=== PATIENT | male | born 1975 | race Caucasian/White ===

== ENCOUNTER 2020-09-15 08:58 | Outpatient (REF) | payer BC, SELFPAY ==
[2020-09-15 11:21] LABS: Glucose Urine UA NEG (NEG); Leukocyte Esterase Urine NEG (NEG); Nitrite Urine NEG (NEG); Specific Gravity - Urine 1.025 (1.005-1.025); Urine Blood NEG (NEG); Urine Ketones 40 MG/DL (NEG); Urine Protein NEG (NEG-TRACE)
[2020-09-15 11:28] LABS: Appearance Urine CLEAR; Color Urine YELLOW
[2020-09-15 11:37] LABS: Hematocrit 46.4 % (42-52); Hemoglobin 15.2 g/dl (14.0-18.0); Mean Corpuscular HGB Conc 32.8 g/dl (31.0-36.0); Mean Corpuscular Hemoglobin 27.9 pg (27.0-33.0); Mean Corpuscular Volume 85.1 fL (80-98); Mean Platelet Volume 11.3 fL (9.4-12.4); Platelet Count 219 X10*3/uL (160-400); Red Blood Count 5.45 X10*6/uL (4.60-5.80); Red Cell Distribution Width 13.9 % (11.0-16.0); White Blood Count 4.1 X10*3/uL (4.8-10.8)
[2020-09-15 11:41] LABS: Mucus Urine 2+ /LPF; RBC Urine 0 /HPF (0); Squamous Epithelial Cell Urine TRACE /LPF; WBC Urine 0 /HPF (0-4)
[2020-09-15 11:52] LABS: Alanine Aminotransferase 18 U/L (0-40); Albumin Level 4.6 g/dL (3.5-5.0); Alkaline Phosphatase 42 U/L (39-117); Anion Gap 15 (12-20); Aspartate Amino Transferase 18 U/L (5-37); Bilirubin Total 0.8 mg/dL (0.0-1.0); Blood Urea Nitrogen 20 mg/dL (9-16); Calcium 9.3 mg/dL (8.4-10.2); Carbon Dioxide 24 mmol/L (22-29); Chloride 104 mmol/L (96-108); Cholesterol 276 mg/dL; Estimated Glomerular Filt Rate > 60; Glucose Fasting 88 mg/dL (60-99); HDL Cholesterol 43 mg/dL; LDL Cholesterol Calculated 216 mg/dl; Potassium 4.3 mmol/L (3.3-5.1); Sodium 139 mmol/L (135-145); Total Protein 7.4 g/dL (6.5-8.0); Triglycerides 88 mg/dL
== END 2020-09-15 08:59 | disposition home or self-care (01) ==
LOC: HO.HMGCLDS 08:58
PROVIDERS: PCP Internal Medicine; Visit Provider Internal Medicine
DX: Z00.00 Encounter for general adult medical examination without abnormal findings (principal)
CPT/HCPCS: 36415; 80053; 80061; 81001; 85027

== ENCOUNTER 2023-05-15 07:58 | Outpatient (REF) | payer BC, SELFPAY ==
[2023-05-15 08:28] LABS: MANUAL DIFF FLAG NO
[2023-05-15 08:43] LABS: Basophils Percent Auto 0.4 % (0-2); Eosinophils Absolute Auto 0.3 X10*3/uL (0.0-0.4); Eosinophils Percent Auto 5.5 % (0-4); Hematocrit 45.8 % (42.0-52.0); Hemoglobin 15.2 g/dl (14.0-18.0); Imm Gran Abs Auto 0.01 X10*3/uL (0.00-0.03); Imm Gran Pct Auto 0.2 % (0.0-0.4); Lymphocytes Percent Auto 41.7 % (20-40); Mean Corpuscular HGB Conc 33.2 g/dl (31.0-36.0); Mean Corpuscular Hemoglobin 28.2 pg (27.0-33.0); Mean Platelet Volume 11.3 fL (9.4-12.4); Monocytes Absolute Auto 0.3 X10*3/uL (0.1-1.2); Monocytes Percent Auto 6.8 % (2-11); Neutrophils Absolute Auto 2.1 x10*3/uL (2.0-8.3); Neutrophils Percent Auto 45.4 % (45-73); Platelet Count 212 X10*3/uL (160-400); Red Blood Count 5.39 X10*6/uL (4.60-5.80); Red Cell Distribution Width 13.3 % (11.0-16.0); White Blood Count 4.7 X10*3/uL (4.8-10.8)
[2023-05-15 08:58] LABS: Appearance Urine Clear; Color Urine Yellow; Glucose Urine UA Negative (Negative); Leukocyte Esterase Urine Negative (Negative); Nitrite Urine Negative (Negative); PH 5.5 (5.0-9.0); Specific Gravity - Urine 1.025 (1.005-1.025); Urine Blood Negative (Negative); Urine Ketones Trace mg/dL (Negative); Urine Protein Negative (Neg-Trace)
[2023-05-15 09:01] LABS: Bacteria Urine None Seen (None Seen); Hyaline Casts Urine 0-2 /LPF (0-2); RBC Urine 0-2 /HPF (0-2); Squamous Epithelial Cell Urine 0-2 /HPF (0-2); WBC Urine 0-5 /HPF (0-5)
[2023-05-15 09:10] LABS: Alanine Aminotransferase 61 U/L (0-40); Albumin Level 4.3 g/dL (3.5-5.0); Alkaline Phosphatase 42 U/L (39-117); Anion Gap 12 (12-20); Aspartate Amino Transferase 30 U/L (5-37); Bilirubin Total 0.3 mg/dL (0.0-1.0); Blood Urea Nitrogen 18 mg/dL (9-16); Calcium 9.3 mg/dL (8.4-10.2); Carbon Dioxide 26 mmol/L (22-29); Chloride 108 mmol/L (96-108); Cholesterol 214 mg/dL (<200); Estimated Glomerular Filt Rate > 60; Glucose Fasting 104 mg/dL (60-99); HDL Cholesterol 42 mg/dL (>40); LDL Cholesterol Calculated 159 mg/dL (<100); Potassium 3.7 mmol/L (3.3-5.1); Sodium 142 mmol/L (135-145); Total Protein 7.2 g/dL (6.5-8.0); Triglycerides 68 mg/dL (<150); Uric Acid 5.8 mg/dL (3.4-7.0)
[2023-05-15 09:26] LABS: Vitamin D 25-OH Total 36.2 ng/mL (>30)
[2023-05-15 09:39] LABS: Folate 5.4 ng/mL (> or = 4.0); Vitamin B12 460 pg/mL (200-900)
[2023-05-16 17:49] LABS: Homocysteine 11.1 umol/L (<11.4)
== END 2023-05-15 07:59 | disposition home or self-care (01) ==
LOC: HO.HMGCLDS 07:58
PROVIDERS: PCP Internal Medicine; Visit Provider Internal Medicine
DX: Z00.00 Encounter for general adult medical examination without abnormal findings (principal)
CPT/HCPCS: 36415; 80053; 80061; 81001; 82306; 82607; 82746; 83090; 84550; 85025

== ENCOUNTER 2023-05-17 08:47 | Outpatient (AMB) | payer BC, SELFPAY ==
[2023-05-17 08:48] VITALS: BP 118/80; PULSE 79; O2SAT 97; BMI 27.9
--- NOTE | 2023-05-17 08:48 | MHC.PC.OV ---
Vital Signs 05/17/23 08:48 Height 6 ft 4 in Weight 229 lb BMI 27.9 BP 118/80 Blood Pressure Location Lt brachial Position Sitting Pulse 79 Pulse Source Pulse Oximeter Pulse Oximetry (%) 97 Oxygen Delivery Method Room Air Intake Visit Reasons: PE Intake Note: Pt is here today for PE. Allergies penicillin G Allergy (Unknown, Verified 05/17/23 08:53) unknown Medication List - Last Reconciled 05/17/23 by Janice Zamora MD cholecalciferol (vitamin D3) 125 mcg PO DAILY omega-3 fatty acids PO vitamin B complex 1 cap PO DAILY Tobacco use date assessed: 05/17/23 Dental Screening Dental Screen Date: 05/17/23 Did you have a dental visit in the last 12 months?: Yes Did you have a dental problem in the last 6 months where you did not have access to dental care?: No Was dental information given to patient?: Patient has dentist HPI PE HPI Details Pt presents for PE. PFSH Medical History Hyperlipidemia Annual physical exam Family History Father No problems noted. Mother Diabetes Paternal Grandfather Lung cancer Social History Housing: House Alcohol intake: current Alcohol intake frequency: a few times a month Patient Tobacco Use Status: Current someday Tobacco user Tobacco use type: Cigarette e-Cigarette/Vaping Use: Never Used Current occupational status: employed Cognitive needs: No Hearing needs: No Vision needs: Yes Questionnaire Thrive Questionnaire I am a: Patient What is your living situation today?: I have a steady place to live Within the past 12 months, did the food you bought not last and you didn't have the money to get more?: Never true Within the past 12 months, did you worry whether your food would run out before you got money to buy more?: Never true Please select the resources that you would like help with: None AUDIT C Alcohol Use Questionnaire (AUDIT-C) 1. How often do you have a drink containing alcohol?: 2-4 times a month 2. How many drinks containing alcohol do you have on a typical day when you are drinking?: 1 or 2 3. How often do you have six or more drinks on one occasion?: Less than monthly Total Score: 3 MARIE-7 AMB Questionnaire MARIE-7 Feeling nervous, anxious, or on edge: 2 = More than half the days Not being able to stop or control worryin = Not at all Worrying too much about different things: 1 = Several days Trouble relaxin = Several days Being so restless that it is hard to sit still: 0 = Not at all Becoming easily annoyed or irritable: 1 = Several days Feeling afraid as if something awful might happen: 1 = Several days Total MARIE-7 score (0-4 normal; 5-9 mild; 10-14 moderate; 15-21 severe): 6 Source: Developed by Drs. Heraclio Landa, Shelby Ngo, Duc Nixon and colleagues, with an educational ana from [employer]. Review of Systems Const All systems reviewed & are unremarkable except as noted in HPI and below Reports no additional complaints Eyes Reports no additional complaints ENT Reports no additional complaints Card Reports no additional complaints Resp Reports no additional complaints GI Reports no additional complaints Reports no additional complaints Physical exam (Primary Care) Vital Signs: Last Vital Signs Pulse 79 05/17/23 08:48 BP 118/80 05/17/23 08:48 Pulse Ox 97 05/17/23 08:48 Oxygen Delivery Method Room Air 05/17/23 08:48 BMI result Body Mass Index 27.9 Tobacco/Smoking Status: Tobacco use Status Tobacco use date assessed 05/17/23 05/17/23 08:58 Patient Tobacco Use Status Current someday Tobacco 05/17/23 08:58 Tobacco use type Cigarette 05/17/23 08:58 e-Cigarette/Vaping Use Never Used 05/17/23 08:58 Const General: no acute distress HENMT Head: Yes normal to inspection Ears: hearing grossly normal bilaterally Face and sinus: Yes normal facial exam Mouth: Normal oral and palatal mucosa present Teeth and gingiva: dentition normal Throat: Yes posterior oropharynx normal Eyes General: appearance normal, both eyes and all related structures Neck Neck: Yes no lymphadenopathy and Yes supple Resp Effort & Inspection: normal respiratory effort Auscultation: clear to auscultation bilaterally Cardio Rhythm: regular rhythm Heart sounds: S1 normal heart sound present and S2 normal heart sound present GI Inspection: Yes normal to inspection Palpation (GI): Soft to palpation Percussion: Yes normal to percussion Auscultation: normal bowel sounds Assessment and Plan Assessment & Plan (1) Elevated LFTs: Code(s): R79.89 - Other specified abnormal findings of blood chemistry Plan: Low saturated fats and simple carbohydrates diet discussed with the patient. He was advised to avoid alcohol and [id number] NSAIDs and will have a repeat LFTs in 1 month. Liver ultrasound will be obtained (2) Annual physical exam: Code(s): Z00.00 - Encounter for general adult medical examination without abnormal findings Plan: Well-balanced diet regular physical activity discussed with the patient. He will be referred for screening colonoscopy (3) Hyperlipidemia: Code(s): E78.5 - Hyperlipidemia, unspecified Plan: Low-cholesterol diet increase physical activity discussed with the patient . lipid profile will be rechecked. Orders: Orders US abdomen limited Today R7 - Other specified abnormal findings of blood chemistry Hepatitis A,B,C Profile 1 Month R7. - Other specified abnormal findings of blood chemistry Comprehensive [place]. Panel Fast 365 Days E78.5 - Hyperlipidemia, unspecified, R73.9 - Hyperglycemia, unspecified, Z00.00 - Encounter for general adult medical examination without abnormal findings Lipid Panel 365 Days E78.5 - Hyperlipidemia, unspecified, R73.9 - Hyperglycemia, unspecified, Z00.00 - Encounter for general adult medical examination without abnormal findings Liver Panel 1 Month R79.89 - Other specified abnormal findings of blood chemistry Lipid Panel 1 Month E78.5 - Hyperlipidemia, unspecified Complete Blood Count Auto Diff 365 Days E78.5 - Hyperlipidemia, unspecified, R73.9 - Hyperglycemia, unspecified, Z00.00 - Encounter for general adult medical examination without abnormal findings Hemoglobin A1c 365 Days R73.9 - Hyperglycemia, unspecified, Z00.00 - Encounter for general adult medical examination without abnormal findings Referrals Gastroenterology Referral Z00.00 - Encounter for general adult medical examination without abnormal findings Medications: New ketoconazole 2% 1 appl topical DAILY 120 grams 1RF Coding Level of Care Code Est Pt Prev Care 40-64y(59707) Diagnoses Elevated LFTs R7. Annual physical exam Z00.00 Hyperlipidemia E78.5
== END 2023-05-17 09:42 | disposition home or self-care (01) ==
PROVIDERS: PCP Internal Medicine; Visit Provider Internal Medicine
DX: R79.89 Other specified abnormal findings of blood chemistry (principal); Z00.00 Encounter for general adult medical examination without abnormal findings; E78.5 Hyperlipidemia, unspecified
CPT/HCPCS: 99396

== ENCOUNTER 2023-05-30 08:36 | Outpatient (REF) | payer BC, SELFPAY ==
--- NOTE | ~2023-05-30 | US_ITS ---
EXAMINATION: US ABDOMEN LIMITED CLINICAL INFORMATION: Other specified abnormal findings of blood chemistry. COMPARISON: None available. TECHNIQUE: Real-time imaging of the right upper quadrant abdominal viscera. FINDINGS: PANCREAS: Normal. The visualized pancreatic head and body are normal in appearance. The remainder of the pancreas is obscured from visualization by the overlying bowel gas. LIVER: Normal. The liver is normal in size. The liver contour is normal. Parenchymal echogenicity is normal. No focal hepatic lesion. There is no intrahepatic biliary duct dilatation seen. GALLBLADDER: Normal. The gallbladder is physiologically distended without evidence of stones, sludge, polyps, wall thickening or pericholecystic fluid. COMMON BILE DUCT: Normal in caliber measuring 0.15 cm in diameter. RIGHT KIDNEY: Normal. No hydronephrosis. No renal calculi or focal parenchymal lesions. The kidney measures 11.2 cm in maximum dimension. FREE FLUID: None. US/US abdomen limited IMPRESSION: Unremarkable examination, with imaging of the pancreas technically limited.
== END 2023-05-30 08:37 | disposition home or self-care (01) ==
LOC: HO.HMGCX 08:36
PROVIDERS: PCP Internal Medicine; Visit Provider Internal Medicine
DX: R79.89 Other specified abnormal findings of blood chemistry (principal)
CPT/HCPCS: 76705

== ENCOUNTER 2023-07-03 08:38 | Outpatient (AMB) | payer BC, SELFPAY ==
[2023-07-03 08:43] VITALS: BP 133/64; PULSE 77; BMI 27.4
--- NOTE | 2023-07-03 08:43 | MHC.OFFVIS ---
Intake Vital Signs 07/03/23 08:43 Height 6 ft 4 in Weight 225 lb BMI 27.4 BP 133/64 Blood Pressure Location Lt brachial Position Sitting Pulse 77 Pulse Source Monitor Intake Visit Reasons: Colonoscopy Screening Intake Note: Patient states no GI issues at the moment. 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 male with no significant past medical history is here today for pre colonoscopy screening.? Patient was sent to us by his PCP.? This is his first colonoscopy screening.? Patient reports occasional postprandial abdominal bloating, feeling gassy. Patient is doing intermittent fasting with 8 hours of eating in 16 hours of fasting. Reports that he moves his bowels without any issues. Patient reports that lately depending on what he eats he might be feeling very bloated.? Denies any personal or family history of gastrointestinal disease. Patient's maternal aunt was diagnosed with colorectal cancer in her 80s.? Denies history of difficulty with sedation or anesthesia in the past.? Negative for history of sleep apnea.? Denies any history of cardiac, renal, pulmonary, or hepatic disease.?? No history of infectious? diseases like hepatitis A, B, C, HIV or tuberculosis.? Patient is not on any anticoagulation therapy. [facility] Medical History Hyperlipidemia Annual physical exam Family History Father No problems noted. Mother Diabetes Paternal Grandfather Lung cancer Social History Housing: House Alcohol intake: current Alcohol intake frequency: a few times a month Patient Tobacco Use Status: Current someday Tobacco user Tobacco use type: Cigarette e-Cigarette/Vaping Use: Never Used Current occupational status: employed Cognitive needs: No Hearing needs: No Vision needs: Yes Review of Systems Const Denies weight gain and Denies weight loss ENT Reports no additional complaints, Denies dysphagia and Denies odynophagia Card Reports no additional complaints Resp Reports no additional complaints GI Denies abdominal pain, Denies belching, Denies melena, Reports bloating, Denies change in bowel habits, Reports tenesmus, Denies dysphagia, Denies excessive flatus, Denies dyspepsia, Reports heartburn, Denies diarrhea, Denies loose stools, Denies nausea, Denies odynophagia and Denies vomiting Reports no additional complaints Musc Reports no additional complaints Neuro Reports no additional complaints Psych Reports no additional complaints Endo Reports no additional complaints Physical Exam Const General: healthy appearing, no acute distress and well developed Nutritional Appearance: well nourished Orientation/consciousness: patient oriented x3 Resp Effort & Inspection: normal respiratory effort, able to speak in complete sentences, no tracheal deviation and symmetric chest movement Auscultation: clear to auscultation bilaterally Cardio Rate: regular rate GI Inspection: Yes normal to inspection and No distended Palpation (GI): Soft to palpation, not firm, nontender and No hepatosplenomegaly present Auscultation: normal bowel sounds General: Yes no CVA tenderness Back/Spine/Pelvis Back: no CVA tenderness Skin General skin exam: elasticity normal, turgor normal and dry skin Neuro General: patient oriented x3 Psych Appearance: grossly normal Mental Status: mental status grossly normal Assessment & Plan Assessment & Plan (1) Screen for colon cancer: Code(s): Z12.11 - Encounter for screening for malignant neoplasm of colon (2) GERD (gastroesophageal reflux disease): Code(s): K21.9 - Gastro-esophageal reflux disease without esophagitis Qualifiers: Esophagitis presence: esophagitis presence not specified Qualified Code(s): K21.9 - Gastro-esophageal reflux disease without esophagitis (3) Postprandial abdominal bloating: Code(s): R14.0 - Abdominal distension (gaseous) Plan Patient denies any cardiac or respiratory symptoms.? Patient reports postprandial abdominal bloating, feeling very gassy. Discussed with patient low FODMAP diet. List of food recommended as well as list of food to avoid given to patient. Postprandial dyspepsia occasionally. Patient does admit to be drinking lot of coffee a day. Patient will be sent for upper endoscopy to rule out gastritis, esophagitis, Lehman's, duodenitis, gastric or peptic ulcers, H pylori. Currently patient is not taking any PPIs, we will hold on placing patient on any medication until after procedure. Denies any issues with anesthesia in the past.? Denies any history of sleep apnea.? No history infectious diseases in the past or present.? Not on any anticoagulation therapy.? Maternal aunt diagnosed with colorectal cancer in her 80s.? Patient denies melena, hematochezia, unintentional weight loss or ribbon like stools.? Discussed at length the pre-procedure,? prep, diet & medications as well as what to expect prior, during and after the procedure.?? Stressed the importance of good bowel prep. ?Recommended the use of Vaseline or Calmoseptine OTC & baby wipes with bowel movements to promote comfort.? ?Patient verbalizes understanding and agrees to plan of care.? He was given the opportunity to ask questions and all questions answered.? We will see his after the procedure.? Medications: New bisacodyl (Dulcolax (bisacodyl)) take 4 tabs at noon the day before your colonoscopy 20 mg (4 x 5 mg) PO ONCE 1 day 4 tabs 0RF Z12.11 - Encounter for screening for malignant neoplasm of colon polyethylene glycol 3350 (Miralax) As directed by [facility] at [facility] 238 grams PO ONCE 238 grams 0RF Z12.11 - Encounter for screening for malignant neoplasm of colon Coding Level of Care Code New Pt Level 4 (35148) Diagnoses Screen for colon cancer Z12.11 Gastroesophageal reflux disease, unspecified whether esophagitis present K21.9 Esophagitis presence: esophagitis presence not specified Postprandial abdominal bloating R14.0 Time Spent (min) 45 Comment 30 minutes spent with patient and additional 15 minutes spent reviewing her records
== END 2023-07-03 09:33 | disposition home or self-care (01) ==
PROVIDERS: PCP Internal Medicine; Visit Provider Nurse Practitioner Family
DX: K21.9 Gastro-esophageal reflux disease without esophagitis (principal); R14.0 Abdominal distension (gaseous); Z12.11 Encounter for screening for malignant neoplasm of colon
CPT/HCPCS: 99204

== ENCOUNTER → 2023-07-03 08:38 | Outpatient (BNVA) | payer BC, SELFPAY | PROVIDERS: PCP Internal Medicine; Visit Provider Nurse Practitioner Family ==

== ENCOUNTER 2023-10-09 07:28 | Day surgery (SDC) | payer BC, SELFPAY ==
--- NOTE | 2023-10-04 11:55 | HO.ANESPROP2 ---
Documented by User: Sydnee Varma NP 10/04/23 12:08 HPI - Anesthesia Eval Consult details Narrative: 48yo M for Upper Endoscopy and Colonoscopy [facility] Active Problems Active Problems: All Active Problems Hyperglycemia (Acute) Hyperlipidemia (Acute) Elevated LFTs (Acute) Annual physical exam (Acute) Past Medical History Medical History (Updated 10/09/23 @ 09:27 by Mireya Nix RN) History of deviated nasal septum Hyperlipidemia Annual physical exam Family History Family History Father No problems noted. Mother Diabetes Paternal Grandfather Lung cancer Surgical History Surgical History (Updated 10/09/23 @ 09:27 by Mireya Nix RN) Hx of wisdom tooth extraction Social History Social History Housing: House Alcohol intake: current Alcohol intake frequency: a few times a month Patient Tobacco Use Status: Current someday Tobacco user Tobacco use type: Cigarette Smoked in Last 30 Days: Yes e-Cigarette/Vaping Use: Never Used Patient Interested in Nicotine Replacement: No Are you DNR?: No Advance Directives: No Advance Directives Information Provided: Yes Nutrition Risks: No Nutritional Risk Current occupational status: employed Cognitive needs: No Hearing needs: No Vision needs: Yes Meds Allergies Allergy/AdvReac Type Severity Reaction Status Date / Time penicillin G Allergy Unknown unknown Verified 10/09/23 08:03 Home Medications ?Medication ?Instructions ?Recorded ?Confirmed ?Last Taken ?Type cholecalciferol (vitamin D3) 125 125 mcg PO DAILY 05/17/23 10/09/23 Unknown History mcg (5,000 unit) capsule omega-3 fatty acids PO 05/17/23 05/17/23 Unknown History vitamin B complex 1 cap PO DAILY 05/17/23 10/09/23 Unknown History Assessment and Plan Assessment Anesthesia Assessment: Chart Reviewed Documented by User: Eber Bhatt MD 10/09/23 09:49 [facility] Past Medical History Medical History (Updated 10/09/23 @ 09:27 by Mireya Nix RN) History of deviated nasal septum Hyperlipidemia Annual physical exam Family History Family History Father No problems noted. Mother Diabetes Paternal Grandfather Lung cancer Family history of problems with anesthesia: No Surgical History Surgical History (Updated 10/09/23 @ 09:27 by Mireya Nix RN) Hx of wisdom tooth extraction History of Problems with Anesthesia: No Social History Social History Housing: House Alcohol intake: current Alcohol intake frequency: a few times a month Patient Tobacco Use Status: Current someday Tobacco user Tobacco use type: Cigarette Smoked in Last 30 Days: Yes e-Cigarette/Vaping Use: Never Used Patient Interested in Nicotine Replacement: No Are you DNR?: No Advance Directives: No Advance Directives Information Provided: Yes Nutrition Risks: No Nutritional Risk Current occupational status: employed Cognitive needs: No Hearing needs: No Vision needs: Yes Meds Allergies Allergy/AdvReac Type Severity Reaction Status Date / Time penicillin G Allergy Unknown unknown Verified 10/09/23 08:03 Home Medications ?Medication ?Instructions ?Recorded ?Confirmed ?Last Taken ?Type cholecalciferol (vitamin D3) 125 125 mcg PO DAILY 05/17/23 10/09/23 Unknown History mcg (5,000 unit) capsule omega-3 fatty acids PO 05/17/23 05/17/23 Unknown History vitamin B complex 1 cap PO DAILY 05/17/23 10/09/23 Unknown History Exam Airway Mallampati Class: I TM Dist: >3cm Neck ROM: Full Loose/Missing/Broken Teeth: No Heart: rrr Lungs: cta Assessment and Plan Assessment Anesthesia Assessment: Anesthesia Plan Discussed Final Anesthetic Review Family History of Problems with Anesthesia: No History of Problems with Anesthesia: No NPO: Yes ASA Class: II Final Preanesthetic Review: No Changes in Pt Med Stat, Meds/Allgs Chart Reviewed, Consent Obtained/Reviewed and Anes Risks/Benef Reviewed Patient Risk: Intermediate Procedure Risk: Intermediate Anesthetic Plan Anesthetic Plan: MAC: Disposition: Standard PACU
[2023-10-09 07:57] VITALS: BMI 27.4
[2023-10-09] MEDS: Sodium Phosphate,Mono-Dibasic 133 ML ENEMA PR ×2 (09:24→09:34)
[2023-10-09] MEDS: Lactated Ringers 1,000 ML 100 ML IVCONT (09:24)
[2023-10-09 09:26] VITALS: BP 134/74; PULSE 87; RESP 18; TEMP 36.8; O2SAT 100
--- NOTE | 2023-10-09 10:00 | MHC.SHP ---
Pre-Procedural Eval Section A - 24 Hr Update-Section A only Date of Service: 10/09/23 Section B - Complete if H&P > 30 days Chief Complaint: Encounter for screening for malignant neoplasm of Relevant Family History (Specify if Yes): No Relevant Social History: None Present Medications: see Short Stay Collaborative assessment Medical History: Significant History (Hyperlipidemia) History of Previous Operations: No relevant previous surgery Allergies: Allergies Allergy/AdvReac Type Severity Reaction Status Date / Time penicillin G Allergy Unknown unknown Verified 10/09/23 08:03 Review of Systems Sugical H&P ROS: Negative: Constitution, Cardiovascular, Respiratory, Neurological, Psychiatric, Hem-Onc, Allergic/Immunologic, Gastrointestinal, Genitourinary, Musculoskeletal, Integumentary, Endocrine and Eyes/Ears/Nose/Throat Exam Surgical H&P Exam: Normal: HEENT, Normal: Heart, Normal: Lungs, Normal: Extremities, Normal: Abdomen, Normal: Skin and Normal: Neurological Plan Diagnosis/Plan: Unchanged I have reviewed the history and physical and performed a pertinent physical examination on my patient. No changes have occurred unless specified. Time Spent With Patient Time: Total time managing care of this patient today ____ minutes.
--- NOTE | 2023-10-09 10:02 | P.OPN-COLO_ITS ---
Colonoscopy Operative Note Operative Note Date of Service: 10/09/23 Narrative: Operative Information Procedure Description: EGD, Colonoscopy Indication: Halitosis and screening colon Anesthesia: MAC FLEXIBLE TRANSORAL UPPER GASTROINTESTINAL ENDOSCOPY AND COLONOSCOPY PROCEDURE NOTE UPPER ENDOSCOPY Consent: Indications for the procedure and potential complications of bleeding, perforation, reaction to medications and missed diagnosis were discussed with the patient and informed consent was obtained. Instrument: Olympus GIF H 190 J mid size upper endoscope Monitoring: Vital signs and clinical assessment, continuous EKG monitoring, Pulse oximetry, Carbon Dioxide monitoring and blood pressure monitoring were done throughout the procedure. Procedure: The patient was placed in the left lateral decubitis position and pre-procedure medications were administered and a bite block was placed. The endoscope was inserted into the mouth and advanced under direct vision to the third part of duodenum. A careful inspection was made as the upper endoscope was withdrawn including a retroflexed examination of the proximal stomach; Findings and interventions are described below. Findings: Larynx:normal Esophagus: GE junction at 44 cm, diaphragm hiatus at 44 cm, slightly dissicated appearing mucosa, bx taken from distal and proximal esophagus Stomach: Normal mucosa. Biopsies were obtained. Grade 2 flap valve on retroflexed examination of the cardia. Duodenum: Normal bulb and descending duodenum, bx taken Intervention: Biopsies as noted above, COLONOSCOPY Instrument: Olympus variable stiffness pediatric scope 190L Colonoscopy Monitoring: Vital signs and clinical assessment, continuous EKG monitoring, Pulse oximetry, Carbon Dioxide monitoring and blood pressure monitoring were done throughout the procedure. Colon withdrawal time was 13 minutes. Procedure: The patient was placed in the left lateral decubitis position and pre-procedure medications were administered. After a digital rectal examination of the ano-rectum, the video colonoscope was inserted into the rectum and advanced through the colon to the cecum/TI. The colonoscope was slowly withdrawn in a retrograde panoramic fashion and the colon mucosa was carefully examined including a retroflexed view of the rectum. Findings and interventions are described below. Procedure Difficulty:moderate Findings: Terminal Ileum-normal Cecum:normal Ascending Colon: normal Transverse Colon -normal Descending Colon:normal Sigmoid Colon: normal Rectum: Retroflexion with small internal hemorrhoids, grade I Anorectum - normal Colon preparation: [place] Bowel Preparation Scale Right colon; 2 Transverse colon: 2 Left colon; 2 (0 = Unprepared colon segment with mucosa not seen due to solid stool that cannot be cleared. 1 = Portion of mucosa of the colon segment seen, but other areas of the colon segment not well seen due to staining, residual stool and/or opaque liquid. 2 = Minor amount of residual staining, small fragments of stool and/or opaque liquid, but mucosa of colon segment seen well. 3 = Entire mucosa of colon segment seen well with no residual staining, small fragments of stool or opaque liquid) Impression and Post Procedure Diagnosis: Endoscopy Findings: mild esophagitis Colonoscopy Findings: internal hemorrhoids Plan: Await Pathology results Repeat Colonoscopy in 10 years or earlier if clinically indicated High fiber diet leaflet avoid straining at stool, epsom salts and sitz bath, anusol supps or cream trial of PPI Above findings were reviewed with the patient and relevant handouts were provided if indicated.
[2023-10-09 10:53] VITALS: BP 98/59; PULSE 71; RESP 16; TEMP 36.1; O2SAT 97
[2023-10-09 11:08] VITALS: BP 109/76; PULSE 67; RESP 16; TEMP 36.1; O2SAT 98
== END 2023-10-09 11:48 | disposition home or self-care (01) ==
PROVIDERS: PCP Internal Medicine; Visit Provider Internal Medicine Gastroenterology
PROC: (CPT 45378; principal; 2023-10-09 09:50)
DX: Z12.11 Encounter for screening for malignant neoplasm of colon (principal); K64.0 First degree hemorrhoids; K21.00 Gastro-esophageal reflux disease with esophagitis, without bleeding; K29.80 Duodenitis without bleeding; R19.6 Halitosis
CPT/HCPCS: 45378; 43239; 88305; 88313; 88342; J1596; J1885; J2704

== ENCOUNTER → 2023-10-09 07:28 | Outpatient (BNV) | payer BC, SELFPAY | PROVIDERS: PCP Internal Medicine; Visit Provider Internal Medicine Gastroenterology | DX: Z12.11 Encounter for screening for malignant neoplasm of colon (principal); K64.0 First degree hemorrhoids; K20.90 Esophagitis, unspecified without bleeding; R19.6 Halitosis | CPT/HCPCS: 43239; 45378 ==

== ENCOUNTER 2023-11-06 08:25 | Outpatient (AMB) | payer BC, SELFPAY ==
--- NOTE | 2023-11-06 08:34 | A.OFFVIS_ITS ---
Vital Signs 11/06/23 08:39 Height 6 ft 4 in Weight 216 lb 0.848 oz BMI 26.3 BP 110/74 Blood Pressure Location Rt brachial Position Sitting Pulse 60 Pulse Source Pulse Oximeter Pulse Oximetry (%) 100 Oxygen Delivery Method Room Air Intake Visit Reasons: [place] s.p FUV Intake Note: Sanjay presents in office today for a scheduled post colo FUV. CC; Sanjay had his procedure on 10/09/[address] Liang. Pt denies any significant new concerns or sx. Pt denies any post s/p complications. [employer] Insurance Required: No Allergies Sulfa (Sulfonamide Antibiotics) Allergy (Unknown, Verified 11/06/23 08:39) Unknown HPI HPI [place] [facility] FUV: Details: LAST VISIT Screen for colon cancer GERD (gastroesophageal reflux disease) Postprandial abdominal bloating Plan Patient denies any cardiac or respiratory symptoms.? Patient reports postprandial abdominal bloating, feeling very gassy. Discussed with patient low FODMAP diet. List of food recommended as well as list of food to avoid given to patient. Postprandial dyspepsia occasionally. Patient does admit to be drinking lot of coffee a day. Patient will be sent for upper endoscopy to rule out gastritis, esophagitis, Lehman's, duodenitis, gastric or peptic ulcers, H pylori. Currently patient is not taking any PPIs, we will hold on placing patient on any medication until after procedure. Denies any issues with anesthesia in the past.? Denies any history of sleep apnea.? No history infectious diseases in the past or present.? Not on any anticoagulation therapy.? Maternal aunt diagnosed with colorectal cancer in her 80s.? Patient denies melena, hematochezia, unintentional weight loss or ribbon like stools.? Discussed at length the pre-procedure,? prep, diet & medications as well as what to expect prior, during and after the procedure.?? Stressed the importance of good bowel prep. ?Recommended the use of Vaseline or Calmoseptine OTC & baby wipes with bowel movements to promote comfort.? ?Patient verbalizes understanding and agrees to plan of care.? He was given the opportunity to ask questions and all questions answered.? We will see his after the procedure.? Medications New bisacodyl (Dulcolax (bisacodyl)) take 4 tabs at noon the day before your colonoscopy 20 mg (4 x 5 mg) PO ONCE 1 day 4 tabs 0RF Z12.11 polyethylene glycol 3350 (Miralax) As directed by gastroenterology department at [facility] 238 grams PO ONCE 238 grams 0RF Z12.11 UPPER ENDOSCOPY Findings: Larynx:normal Esophagus: GE junction at 44 cm, diaphragm hiatus at 44 cm, slightly dissicated appearing mucosa, bx taken from distal and proximal esophagus Stomach: Normal mucosa. Biopsies were obtained. Grade 2 flap valve on retroflexed examination of the cardia. Duodenum: Normal bulb and descending duodenum, bx taken Intervention: Biopsies as noted above, COLONOSCOPY Findings: Terminal Ileum-normal Cecum:normal Ascending Colon: normal Transverse Colon -normal Descending Colon:normal Sigmoid Colon: normal Rectum: Retroflexion with small internal hemorrhoids, grade I Anorectum - normal Colon preparation: Turrell Bowel Preparation Scale Right colon; 2 Transverse colon: 2 Left colon; 2 (0 = Unprepared colon segment with mucosa not seen due to solid stool that cannot be cleared. 1 = Portion of mucosa of the colon segment seen, but other areas of the colon segment not well seen due to staining, residual stool and/or opaque liquid. 2 = Minor amount of residual staining, small fragments of stool and/or opaque liquid, but mucosa of colon segment seen well. 3 = Entire mucosa of colon segment seen well with no residual staining, small fragments of stool or opaque liquid) Impression and Post Procedure Diagnosis: Endoscopy Findings: mild esophagitis Colonoscopy Findings: internal hemorrhoids Plan: Await Pathology results Repeat Colonoscopy in 10 years or earlier if clinically indicated High fiber diet leaflet avoid straining at stool, epsom salts and sitz bath, anusol supps or cream trial of PPI PATHOLOGY: Diagnosis A. Duodenum, biopsy: Chronic inactive duodenitis. B. Stomach, biopsy: Antral-type mucosa with moderate chronic inactive inflammation; no Helicobacter organisms seen. C. Esophagus, distal, biopsy: Squamous epithelium within normal limits; no inflammation seen. D. Esophagus, proximal, biopsy: Squamous epithelium within normal limits; no inflammation seen TODAY'S VISIT: Patient is here today for follow-up and to discuss upper endoscopy and colonoscopy results. Patient denies any ill effects from the prep, anesthesia or procedure itself. Patient reports that he has been feeling fairly well. Reports that he is moving his bowels well without any issues. Patient continues to have epigastric pain occasional dyspepsia and acid reflux depending on what he eats. Currently patient is not on any PPI or H2 roland. Patient denies any other GI concerning symptoms [facility] Medical History History of deviated nasal septum Hyperlipidemia Annual physical exam Surgical History H/O colonoscopy Hx of wisdom tooth extraction Family History Father No problems noted. Mother Diabetes Paternal Grandfather Lung cancer Social History Housing: House Alcohol intake: current Alcohol intake frequency: a few times a month Patient Tobacco Use Status: Current someday Tobacco user Tobacco use type: Cigarette e-Cigarette/Vaping Use: Never Used Current occupational status: employed Cognitive needs: No Hearing needs: No Vision needs: Yes Review of Systems Const Denies weight gain and Denies weight loss ENT Reports no additional complaints, Denies dysphagia and Denies odynophagia Card Reports no additional complaints Resp Reports no additional complaints GI Denies abdominal pain, Denies belching, Denies melena, Denies bloating, Denies change in bowel habits, Denies dysphagia, Denies excessive flatus, Reports dyspepsia, Reports heartburn, Denies diarrhea, Denies loose stools, Denies nausea, Denies odynophagia and Denies vomiting Reports no additional complaints Musc Reports no additional complaints Neuro Reports no additional complaints Psych Reports no additional complaints Endo Reports no additional complaints Physical Exam Vital Signs: Last Vital Signs Pulse 60 11/06/23 08:39 BP 110/74 11/06/23 08:39 Pulse Ox 100 11/06/23 08:39 Oxygen Delivery Method Room Air 11/06/23 08:39 BMI result Body Mass Index 26.3 Const General: healthy appearing, no acute distress and well developed Nutritional Appearance: well nourished Orientation/consciousness: patient oriented x3 Resp Effort & Inspection: normal respiratory effort, able to speak in complete sentences, no tracheal deviation and symmetric chest movement Auscultation: clear to auscultation bilaterally Cardio Rate: regular rate GI Inspection: Yes normal to inspection and No distended Palpation (GI): Soft to palpation, not firm, nontender and No hepatosplenomegaly present Auscultation: normal bowel sounds General: Yes no CVA tenderness Back/Spine/Pelvis Back: no CVA tenderness Skin General skin exam: elasticity normal, turgor normal and dry skin Neuro General: patient oriented x3 Psych Appearance: grossly normal Mental Status: mental status grossly normal Assessment & Plan Assessment & Plan (1) GERD (gastroesophageal reflux disease): Code(s): K21.9 - Gastro-esophageal reflux disease without esophagitis Qualifiers: Esophagitis presence: without esophagitis Qualified Code(s): K21.9 - Gastro-esophageal reflux disease without esophagitis (2) Postprandial abdominal bloating: Code(s): R14.0 - Abdominal distension (gaseous) (3) Status post colonoscopy: Code(s): Z98.890 - Other specified postprocedural states Plan Patient will start taking pantoprazole every morning half an hour before breakfast it avoid dietary triggers and late night snacking. Staying upright for minimum 3 hours after meals discussed with patient. Patient will increase fluid intake and activity to promote better bowel motility. Follow-up in 6 months, sooner on as needed basis. Colonoscopy in 10 years, sooner if clinically necessary. Patient is agreeable to plan of care and verbalizes understanding of instructions. He was given the opportunity to ask questions and all questions answered. Thank you for allowing me participate in his care Medications: New pantoprazole take one tablet half an hour before breakfast 40 mg PO DAILY 90 tabs 2RF K21.9 - Gastro-esophageal reflux disease without esophagitis Coding Level of Care Code Est Pt Level 3 (83045) Diagnoses Gastroesophageal reflux disease without esophagitis K21.9 Esophagitis presence: without esophagitis Postprandial abdominal bloating R14.0 Status post colonoscopy Z98.890 Time Spent (min) 30 Comment 20 minutes spent with patient and additional 10 minutes spent reviewing his records
[2023-11-06 08:39] VITALS: BP 110/74; PULSE 60; O2SAT 100; BMI 26.3
== END 2023-11-06 10:21 | disposition home or self-care (01) ==
PROVIDERS: PCP Internal Medicine; Visit Provider Nurse Practitioner Family
DX: K21.9 Gastro-esophageal reflux disease without esophagitis (principal); R14.0 Abdominal distension (gaseous); Z98.890 Other specified postprocedural states
CPT/HCPCS: 99213

== ENCOUNTER → 2023-11-06 08:25 | Outpatient (BNVA) | payer BC, SELFPAY | PROVIDERS: PCP Internal Medicine; Visit Provider Nurse Practitioner Family ==

== ENCOUNTER 2023-11-13 11:07 | Outpatient (AMB) | payer BC, SELFPAY ==
--- NOTE | 2023-11-13 11:15 | MHC.OFFWIV ---
Intake Vital Signs 11/13/23 11:16 Height 6 ft 4 in Weight 216 lb BMI 26.3 BP 108/80 Blood Pressure Location Lt brachial Position Sitting Pulse 68 Pulse Source Pulse Oximeter Pulse Oximetry (%) 99 Oxygen Delivery Method Room Air Intake Visit Reasons: EP hornet sting rt hand Intake Note: Pt here c/o hornet sting on right hand. Happened yesterday. Has tried benadryl with no relief of swelling Patient Tobacco Use Status: Current someday Tobacco user Allergies Sulfa (Sulfonamide Antibiotics) Allergy (Unknown, Verified 11/13/23 11:15) Unknown Do you need a note to return to daycare/school/sports/work: No HPI HPI Comments History of Present Illness Details Patient is a 48-year-old male who states he was trying to get rid of a hornet nest when 1 of them bit him on the right hand. He states he has had coordinate bites before, but this reaction was worse than he has had previously. He states his hand is swollen, he feels it is warm but denies pain or itching. He denies any itchiness in the back of his throat, feeling like his throat is swelling, nausea, vomiting or any diarrhea. He denies any lip or tongue swelling. He did take some Benadryl but states it did not seem to help and just made him tired. [facility] Medical History History of deviated nasal septum Hyperlipidemia Annual physical exam Surgical History H/O colonoscopy Hx of wisdom tooth extraction Family History Father No problems noted. Mother Diabetes Paternal Grandfather Lung cancer Social History Housing: House Alcohol intake: current Alcohol intake frequency: a few times a month Patient Tobacco Use Status: Current someday Tobacco user Tobacco use type: Cigarette e-Cigarette/Vaping Use: Never Used Current occupational status: employed Cognitive needs: No Hearing needs: No Vision needs: Yes Review of Systems Const All systems reviewed & are unremarkable except as noted in HPI and below Physical Exam Vital Signs: Last Vital Signs Pulse 68 11/13/23 11:16 BP 108/80 11/13/23 11:16 Pulse Ox 99 11/13/23 11:16 Oxygen Delivery Method Room Air 11/13/23 11:16 BMI result Body Mass Index 26.3 Const General: cooperative, healthy appearing, comfortable, no acute distress and well developed Orientation/consciousness: patient oriented x3 Limitations: no limitations Eyes General: appearance normal, both eyes and all related structures Resp Effort & Inspection: normal respiratory effort and able to speak in complete sentences Neuro General: patient oriented x3 Extrem Right upper extremity: Extremity exam: right hand Details: normal capillary refill, neuromotor exam normal, neurosensory exam normal, normal ROM of fingers, warmth and swelling; no tenderness, no abrasions, no lacerations and no ecchymosis Assessment & Plan Assessment & Plan (1) Bee sting reaction: Code(s): T63.441A - Toxic effect of venom of bees, accidental (unintentional), initial encounter Qualifiers: Encounter type: initial encounter Injury intent: undetermined intent Qualified Code(s): T63.444A - Toxic effect of venom of bees, undetermined, initial encounter Plan: Gave patient 40 mg of p.o. prednisone in the office to help with reduction of swelling recommended Zyrtec and Pepcid. I also did prescribe antibiotic so patient will have the medication on him as he is traveling to [place] this weekend, a holiday weekend. Told him signs and symptoms of cellulitis and when he should start taking it. The warmth and swelling he has today is probably mostly due to a reaction to the bee sting. Patient understands and agrees with plan Plan See above Orders: Orders AMB Prednisone Adult Dose Today T63.441A - Toxic effect of venom of bees, accidental (unintentional), initial encounter Medications: New cefuroxime axetil 500 mg PO Q12H 10 tabs 0RF prednisone 20 mg PO ONCE 2 tabs 0RF T63.441A - Toxic effect of venom of bees, accidental (unintentional), initial encounter Coding Level of Care Code Est Pt Level 3 (45203) Diagnoses Bee sting reaction, undetermined intent, initial encounter T63.444A Encounter type: initial encounter Injury intent: undetermined intent
[2023-11-13 11:16] VITALS: BP 108/80; PULSE 68; O2SAT 99; BMI 26.3
== END 2023-11-13 12:14 | disposition home or self-care (01) ==
PROVIDERS: PCP Internal Medicine; Visit Provider Physician Assistant
DX: T63.444A Toxic effect of venom of bees, undetermined, initial encounter (principal)
CPT/HCPCS: 99213

== ENCOUNTER 2024-04-29 09:06 | Outpatient (AMB) | payer BC, SELFPAY ==
--- NOTE | 2024-04-29 09:11 | A.OFFVIS_ITS ---
Vital Signs 04/29/24 09:14 Height 6 ft 4 in Weight 225 lb 4.999 oz BMI 27.4 BP 110/60 Blood Pressure Location Lt brachial Position Sitting Pulse 63 Pulse Source Pulse Oximeter Intake Visit Reasons: 6 month follow up Intake Note: ESTABLISHED PATIENT Sanjay presents in office today for a scheduled 6 mos FUV. Patient reports he is doing well, states no new changes or concerns today. Allergies Sulfa (Sulfonamide Antibiotics) Allergy (Unknown, Verified 04/29/24 09:19) Unknown HPI HPI 6 month follow up: Details: LAST VISIT GERD (gastroesophageal reflux disease) Postprandial abdominal bloating Status post colonoscopy Plan Patient will start taking pantoprazole every morning half an hour before breakfast it avoid dietary triggers and late night snacking. Staying upright for minimum 3 hours after meals discussed with patient. Patient will increase fluid intake and activity to promote better bowel motility. Follow-up in 6 months, sooner on as needed basis. Colonoscopy in 10 years, sooner if clinically necessary. Patient is agreeable to plan of care and verbalizes understanding of instructions. He was given the opportunity to ask questions and all questions answered. ? Thank you for allowing me participate in his care Medications New pantoprazole take one tablet half an hour before breakfast 40 mg PO DAILY 90 tabs 2RF K21.9 TODAY'S VISIT Patient is here today for follow-up. Patient reports that he has been doing fairly well. Change some of his diet. Knows that when he eats too much carbs you will get bloated. Stopped taking pantoprazole for while, however he restarted again. Patient reports that he did not had acid reflux, however he did had bad breath. Feels like pantoprazole helped with that. Patient denies any other GI concerning symptoms. Denies dyspepsia, dysphagia or odynophagia. Denies melena, hematochezia, unintentional weight loss or ribbon like stools. [facility] Medical History History of deviated nasal septum Hyperlipidemia Annual physical exam Surgical History H/O colonoscopy Hx of wisdom tooth extraction Family History Father No problems noted. Mother Diabetes Paternal Grandfather Lung cancer Social History Housing: House Alcohol intake: current Alcohol intake frequency: a few times a month Patient Tobacco Use Status: Current someday Tobacco user Tobacco use type: Cigarette e-Cigarette/Vaping Use: Never Used Current occupational status: employed Cognitive needs: No Hearing needs: No Vision needs: Yes Review of Systems Const Denies weight gain and Denies weight loss ENT Reports no additional complaints, Denies dysphagia and Denies odynophagia Card Reports no additional complaints Resp Reports no additional complaints GI Denies abdominal pain, Denies belching, Denies melena, Denies bloating, Denies change in bowel habits, Denies dysphagia, Denies excessive flatus, Denies dyspepsia, Denies heartburn, Denies diarrhea, Denies loose stools, Denies nausea, Denies odynophagia and Denies vomiting Reports no additional complaints Musc Reports no additional complaints Neuro Reports no additional complaints Psych Reports no additional complaints Endo Reports no additional complaints Physical Exam Vital Signs: Last Vital Signs Pulse 63 04/29/24 09:14 BP 110/60 04/29/24 09:14 BMI result Body Mass Index 27.4 Const General: healthy appearing, no acute distress and well developed Nutritional Appearance: well nourished Orientation/consciousness: patient oriented x3 Resp Effort & Inspection: normal respiratory effort, able to speak in complete sentences, no tracheal deviation and symmetric chest movement Auscultation: clear to auscultation bilaterally Cardio Rate: regular rate GI Inspection: Yes normal to inspection and No distended Palpation (GI): Soft to palpation, not firm, nontender and No hepatosplenomegaly present Auscultation: normal bowel sounds General: Yes no CVA tenderness Back/Spine/Pelvis Back: no CVA tenderness Skin General skin exam: elasticity normal, turgor normal and dry skin Neuro General: patient oriented x3 Psych Appearance: grossly normal Mental Status: mental status grossly normal Assessment & Plan Assessment & Plan (1) GERD (gastroesophageal reflux disease): Code(s): K21.9 - Gastro-esophageal reflux disease without esophagitis Qualifiers: Esophagitis presence: without esophagitis Qualified Code(s): K21.9 - Gastro-esophageal reflux disease without esophagitis (2) Postprandial abdominal bloating: Code(s): R14.0 - Abdominal distension (gaseous) Plan Patient will continue pantoprazole every day for another 2 months then he will wean himself off and take it every other day. He currently does not have any GI concerning symptoms and does not need to follow-up with us unless his symptoms return. Patient will call our office for appointment. Discussed with patient avoiding dietary triggers and late night snacking. Staying upright for minimum 3 hours after meals discussed with patient. Patient is agreeable to current plan of care and verbalizes understanding of instructions. He was given the opportunity to ask questions and all questions answered. Thank you for allowing me to participate in his care Coding Level of Care Code Est Pt Level 3 (36294) Diagnoses Gastroesophageal reflux disease without esophagitis K21.9 Esophagitis presence: without esophagitis Postprandial abdominal bloating R14.0 Time Spent (min) 25 Comment 15 minutes spent with patient and additional 10 minutes spent reviewing his records
[2024-04-29 09:14] VITALS: BP 110/60; PULSE 63; BMI 27.4
== END 2024-04-30 08:26 | disposition home or self-care (01) ==
PROVIDERS: PCP Internal Medicine; Visit Provider Nurse Practitioner Family
DX: K21.9 Gastro-esophageal reflux disease without esophagitis (principal); R14.0 Abdominal distension (gaseous)
CPT/HCPCS: 99213

== ENCOUNTER → 2024-04-29 09:06 | Outpatient (BNVA) | payer BC, SELFPAY | PROVIDERS: PCP Internal Medicine; Visit Provider Nurse Practitioner Family ==

== ENCOUNTER 2024-05-19 10:26 | Outpatient (REF) | payer BC, SELFPAY ==
[2024-05-19 13:14] LABS: MANUAL DIFF FLAG NO
[2024-05-19 13:22] LABS: Basophils Percent Auto 0.4 % (0-2); Eosinophils Absolute Auto 0.2 X10*3/uL (0.0-0.4); Eosinophils Percent Auto 4.1 % (0-4); Hemoglobin 15.4 g/dl (14.0-18.0); Lymphocytes Absolute Auto 1.8 X10*3/uL (1.2-4.9); Lymphocytes Percent Auto 37.6 % (20-40); Mean Corpuscular HGB Conc 33.5 g/dl (31.0-36.0); Mean Corpuscular Hemoglobin 28.5 pg (27.0-33.0); Mean Platelet Volume 11.1 fL (9.4-12.4); Monocytes Absolute Auto 0.4 X10*3/uL (0.1-1.2); Monocytes Percent Auto 7.5 % (2-11); Neutrophils Absolute Auto 2.4 x10*3/uL (2.0-8.3); Neutrophils Percent Auto 50.4 % (45-73); Platelet Count 261 X10*3/uL (160-400); Red Blood Count 5.41 X10*6/uL (4.60-5.80); White Blood Count 4.7 X10*3/uL (4.8-10.8)
[2024-05-19 13:41] LABS: Estimated Average Glucose 103 mg/dL; Hemoglobin A1C 130.3359 umol/L; Hemoglobin A1c % 5.2 % (<6.0); Total Hemoglobin (HGBA1C) 3960.2321 umol/L
[2024-05-19 14:02] LABS: Alanine Aminotransferase 46 U/L (0-40); Albumin Level 4.4 g/dL (3.5-5.0); Alkaline Phosphatase 45 U/L (39-117); Anion Gap 8 (12-20); Aspartate Amino Transferase 26 U/L (5-37); Bilirubin Total 0.6 mg/dL (0.0-1.0); Blood Urea Nitrogen 19 mg/dL (9-16); Calcium 9.5 mg/dL (8.4-10.2); Carbon Dioxide 26 mmol/L (22-29); Chloride 109 mmol/L (96-108); Cholesterol 204 mg/dL (<200); Estimated Glomerular Filt Rate > 60; Glucose Fasting 99 mg/dL (60-99); HDL Cholesterol 50 mg/dL (>40); LDL Cholesterol Calculated 137 mg/dL (<100); Potassium 3.8 mmol/L (3.3-5.1); Sodium 139 mmol/L (135-145); Total Protein 7.3 g/dL (6.5-8.0); Triglycerides 85 mg/dL (<150)
== END 2024-05-19 10:27 | disposition home or self-care (01) ==
LOC: HO.HMGCLDS 10:26
PROVIDERS: PCP Internal Medicine; Visit Provider Internal Medicine
DX: Z00.00 Encounter for general adult medical examination without abnormal findings (principal); R73.9 Hyperglycemia, unspecified; E78.5 Hyperlipidemia, unspecified
CPT/HCPCS: 36415; 80053; 80061; 83036; 85025

== ENCOUNTER 2024-05-21 08:53 | Outpatient (AMB) | payer BC, SELFPAY ==
[2024-05-21 09:00] VITALS: BP 108/68; PULSE 68; O2SAT 97; BMI 27.0
--- NOTE | 2024-05-21 09:00 | A.OFFPC_ITS ---
Vital Signs 05/21/24 09:00 Height 6 ft 4 in Weight 222 lb BMI 27.0 BP 108/68 Blood Pressure Location Lt brachial Position Sitting Pulse 68 Pulse Source Pulse Oximeter Pulse Oximetry (%) 97 Oxygen Delivery Method Room Air Intake Visit Reasons: Annual PE Intake Note: Pt is here today for PE. Allergies Sulfa (Sulfonamide Antibiotics) Allergy (Unknown, Verified 05/21/24 09:04) Unknown Medication List - Last Reconciled 05/21/24 by Janice Zamora MD cholecalciferol (vitamin D3) 125 mcg PO DAILY omega-3 fatty acids PO pantoprazole 40 mg PO DAILY vitamin B complex 1 cap PO DAILY Tobacco use date assessed: 05/21/24 Dental Screening Dental Screen Date: 05/21/24 Did you have a dental visit in the last 12 months?: Yes Did you have a dental problem in the last 6 months where you did not have access to dental care?: No Was dental information given to patient?: Patient has dentist HPI Annual PE HPI Details Pt presents for PE. PFSH Medical History (Updated 05/21/24 @ 09:30 by Janice Zamora MD) History of deviated nasal septum Hyperlipidemia Annual physical exam Surgical History (Updated 05/21/24 @ 09:30 by Janice Zamora MD) H/O colonoscopy Hx of wisdom tooth extraction Family History Father No problems noted. Mother Diabetes Paternal Grandfather Lung cancer Social History Housing: House Alcohol intake: current Alcohol intake frequency: a few times a month Patient Tobacco Use Status: Former Tobacco user e-Cigarette/Vaping Use: Never Used service: No Current occupational status: employed Cognitive needs: No Hearing needs: No Vision needs: Yes Questionnaire PHQ-9 Over the last 2 weeks, how often have you been bothered by any of the following problems? 33325 - PHQ-9 Billing: Patient declined-do not bill Source: Developed by Drs. Heraclio Landa, Shelby Ngo, Duc Nixon and colleagues, with an educational ana from [employer]. Thrive Questionnaire Date Thrive assessed: 05/21/24 I am a: Patient What is your living situation today?: I choose not to answer this question Within the past 12 months, did the food you bought not last and you didn't have the money to get more?: I choose not to answer this question Within the past 12 months, did you worry whether your food would run out before you got money to buy more?: I choose not to answer this question Do you have trouble paying for medicines?: I choose not to answer this question Do you have trouble getting transportation to medical appointments?: I choose not to answer this question Do you have trouble paying your heating and electricity bill?: I choose not to answer this question Do you have trouble taking care of your child, family member or friend?: I choose not to answer this question Do you have trouble with day-to-day activities such as bathing, preparing meals, shopping, managing finances, etc.?: I choose not to answer this question Are you currently unemployed and looking for a job?: I choose not to answer this question Are you interested in more education?: I choose not to answer this question Please select the resources that you would like help with: None Currently or been in a relationship where the following occur: I choose not to answer THRIVE Score: 0 AUDIT C Alcohol Use Questionnaire (AUDIT-C) 1. How often do you have a drink containing alcohol?: Monthly or less 2. How many drinks containing alcohol do you have on a typical day when you are drinking?: 1 or 2 3. How often do you have six or more drinks on one occasion?: Never Total Score: 1 MARIE-7 AMB Questionnaire MARIE-7 Date MARIE - 7 assessed: 05/21/24 Feeling nervous, anxious, or on edge: 0 = Not at all Not being able to stop or control worryin = Not at all Worrying too much about different things: 0 = Not at all Trouble relaxin = Not at all Being so restless that it is hard to sit still: 0 = Not at all Becoming easily annoyed or irritable: 0 = Not at all Feeling afraid as if something awful might happen: 0 = Not at all Total MARIE-7 score (0-4 normal; 5-9 mild; 10-14 moderate; 15-21 severe): 0 Source: Developed by Drs. Heraclio Landa, Duc Mejia and colleagues, with an educational ana from [employer]. MARIE-7 Assessment Billing MARIE-7 Assessment Tool: MARIE-7 Assessment 90012 Review of Systems Const All systems reviewed & are unremarkable except as noted in HPI and below Reports no additional complaints Eyes Reports no additional complaints ENT Reports no additional complaints Card Reports no additional complaints Resp Reports no additional complaints GI Reports no additional complaints Reports no additional complaints Musc Reports no additional complaints Physical exam (Primary Care) Vital Signs: Last Vital Signs Pulse 68 05/21/24 09:00 BP 108/68 05/21/24 09:00 Pulse Ox 97 05/21/24 09:00 Oxygen Delivery Method Room Air 05/21/24 09:00 BMI result Body Mass Index 27.0 Tobacco/Smoking Status: Tobacco use Status Tobacco use date assessed 05/21/24 05/21/24 09:12 Patient Tobacco Use Status Former Tobacco user 05/21/24 09:12 Tobacco use type 05/21/24 09:12 e-Cigarette/Vaping Use Never Used 05/21/24 09:01 Thrive Assessment: Date of Thrive Assessment Date Thrive assessed 05/21/24 05/21/24 09:12 Currently or been in a relationship where the following occur: I choose not to answer Const General: no acute distress HENMT Head: Yes normal to inspection Ears: hearing grossly normal bilaterally Face and sinus: Yes normal facial exam Mouth: Normal oral and palatal mucosa present Throat: Yes posterior oropharynx normal Eyes General: appearance normal, both eyes and all related structures Neck Neck: Yes no lymphadenopathy and Yes supple Resp Effort & Inspection: normal respiratory effort Auscultation: clear to auscultation bilaterally Cardio Rhythm: regular rhythm Heart sounds: S1 normal heart sound present and S2 normal heart sound present GI Inspection: Yes normal to inspection Palpation (GI): Soft to palpation Percussion: Yes normal to percussion Auscultation: normal bowel sounds Coding Level of Care Code Est Pt Prev Care 40-64y(75243) Diagnoses History of esophagogastroduodenoscopy (EGD) Z98.890 Hyperlipidemia E78.5 Annual physical exam Z00.00 Additional Codes MARIE-7 Assessment Billing - MARIE-7 Assessment Tool: MARIE-7 Assessment 43310 ([id number]) Assessment & Plan Assessment & Plan (1) History of esophagogastroduodenoscopy (EGD): Comment: 09/2023, chronic inactive gastritis, negative H pylori, on PPI p.r.n. Code(s): Z98.890 - Other specified postprocedural states Category: Surgical Plan: Anti GERD diet discussed with the patient, continue PPIs p.r.n. only (2) Hyperlipidemia: Comment: Diet controlled Code(s): E78.5 - Hyperlipidemia, unspecified Category: Medical Plan: Continue low-cholesterol diet (3) Annual physical exam: Code(s): Z00.00 - Encounter for general adult medical examination without abnormal findings Category: Medical Plan: Well-balanced diet regular exercise discussed with the patient return in 1 year with a fasting labs before Orders: Orders Complete Blood Count Auto Diff 1 Year E78.5 - Hyperlipidemia, unspecified, Z00.00 - Encounter for general adult medical examination without abnormal findings Lipid Panel 1 Year E78.5 - Hyperlipidemia, unspecified, Z00.00 - Encounter for general adult medical examination without abnormal findings UA w Microscopic 1 Year E78.5 - Hyperlipidemia, unspecified, Z00.00 - Encounter for general adult medical examination without abnormal findings Comprehensive [place]. Panel Fast 1 Year E78.5 - Hyperlipidemia, unspecified, Z00.00 - Encounter for general adult medical examination without abnormal findings
== END 2024-05-21 09:40 | disposition home or self-care (01) ==
PROVIDERS: PCP Internal Medicine; Visit Provider Internal Medicine
DX: Z98.890 Other specified postprocedural states (principal); E78.5 Hyperlipidemia, unspecified; Z00.00 Encounter for general adult medical examination without abnormal findings

== ENCOUNTER → 2024-05-21 08:53 | Outpatient (BNVA) | payer BC, SELFPAY | PROVIDERS: PCP Internal Medicine; Visit Provider Internal Medicine | DX: Z00.00 Encounter for general adult medical examination without abnormal findings (principal); E78.5 Hyperlipidemia, unspecified | CPT/HCPCS: 96127 ==

== ENCOUNTER 2025-01-14 08:51 | Outpatient (AMB) | payer BC, SELFPAY ==
--- NOTE | 2025-01-14 08:54 | A.OFFPC_ITS ---
Vital Signs 01/14/25 08:55 01/14/25 09:43 Height 6 ft 4 in Weight 229 lb BMI 27.9 BP 110/90 H 110/78 Blood Pressure Location Lt brachial Rt brachial Position Sitting Sitting Respiration 18 Pulse 77 Pulse Source Pulse Oximeter Temp 98.0 F Temp Source Oral Pulse Oximetry (%) 99 Oxygen Delivery Method Room Air Intake Visit Reasons: Hospital follow up Allergies Sulfa (Sulfonamide Antibiotics) Allergy (Unknown, Verified 01/14/25 08:57) Unknown Medication List - Last Reconciled 01/14/25 by Janice Zamora MD cholecalciferol (vitamin D3) 125 mcg PO DAILY omega-3 fatty acids PO vitamin B complex 1 cap PO DAILY Tobacco use date assessed: 01/14/25 Dental Screening Dental Screen Date: 01/14/25 Did you have a dental visit in the last 12 months?: Yes Did you have a dental problem in the last 6 months where you did not have access to dental care?: No Was dental information given to patient?: Patient has dentist HPI Hospital follow up HPI Details Pt presents for f/u of [facility] ER visit on 01/02. Pt developed new onset MENDOZA, difficulty understanding some words, bilateral leg weakness lasting for 2 days after patient had come back from a motorcycle trip to [place]. He was riding motorcycle for 1 week, drinking alcohol daily and smoking tobacco. Patient denies using drugs. On ER evaluation patient's vital signs were stable and neuro exam was normal. Basic labs were normal. Pt had negative CT angiogram and brain MR. Patient denies any recurrent symptoms. [facility] Medical History History of deviated nasal septum Hyperlipidemia Annual physical exam Surgical History H/O colonoscopy Hx of wisdom tooth extraction Family History Father No problems noted. Mother Diabetes Paternal Grandfather Lung cancer Social History Housing: House Alcohol intake: current Alcohol intake frequency: a few times a month Patient Tobacco Use Status: Former Tobacco user e-Cigarette/Vaping Use: Never Used service: No Current occupational status: employed Cognitive needs: No Hearing needs: No Vision needs: Yes Questionnaire PHQ-9 Over the last 2 weeks, how often have you been bothered by any of the following problems? 1. Little interest or pleasure in doing things: not at all 2. Feeling down, depressed, or hopeless: not at all 3. Trouble falling or staying asleep, or sleeping too much: several days 4. Feeling tired or having little energy: several days 5. Poor appetite or overeating: not at all 6. Feeling bad about yourself - or that you are a failure or have let yourself or your family down: not at all 7. Trouble concentrating on things, such as reading the newspaper or watching television: not at all 8. Moving or speaking so slowly that other people could have noticed. Or the opposite - being so fidgety or restless that you have been moving around a lot more than usual: several days 9. Thoughts that you would be better off or of hurting yourself in some way: not at all Total score: 3 Depression Screening Interpretation: Negative Depression Screening Done: Yes 28054 - PHQ-9 Billing: Yes Source: Developed by Drs. Heraclio Landa, Shelby Ngo, Duc Nixon and colleagues, with an educational ana from [employer]. Thrive Questionnaire Date Thrive assessed: 01/14/25 I am a: Patient What is your living situation today?: I choose not to answer this question Within the past 12 months, did the food you bought not last and you didn't have the money to get more?: I choose not to answer this question Within the past 12 months, did you worry whether your food would run out before you got money to buy more?: I choose not to answer this question Do you have trouble paying for medicines?: I choose not to answer this question Do you have trouble getting transportation to medical appointments?: I choose not to answer this question Do you have trouble paying your heating and electricity bill?: I choose not to answer this question Do you have trouble taking care of your child, family member or friend?: I choose not to answer this question Do you have trouble with day-to-day activities such as bathing, preparing meals, shopping, managing finances, etc.?: I choose not to answer this question Are you currently unemployed and looking for a job?: I choose not to answer this question Are you interested in more education?: I choose not to answer this question Please select the resources that you would like help with: None Currently or been in a relationship where the following occur: I choose not to answer THRIVE Score: 0 MARIE-7 AMB Questionnaire MARIE-7 Date MARIE - 7 assessed: 05/21/24 Source: Developed by Drs. Heraclio Landa, Shelby Ngo, Duc Nixon and colleagues, with an educational ana from [employer]. Review of Systems Const All systems reviewed & are unremarkable except as noted in HPI and below Eyes Reports no additional complaints ENT Reports no additional complaints Card Reports no additional complaints Resp Reports no additional complaints GI Reports no additional complaints Reports no additional complaints Physical exam (Primary Care) Vital Signs: Last Vital Signs Temp 98.0 F 01/14/25 08:55 Pulse 77 01/14/25 08:55 Resp 18 01/14/25 08:55 BP 110/78 01/14/25 09:43 Pulse Ox 99 01/14/25 08:55 Oxygen Delivery Method Room Air 01/14/25 08:55 BMI result Body Mass Index 27.9 Tobacco/Smoking Status: Tobacco use Status Tobacco use date assessed 01/14/25 01/14/25 09:01 Patient Tobacco Use Status Former Tobacco user 01/14/25 09:01 Tobacco use type 05/21/24 09:24 e-Cigarette/Vaping Use Never Used 01/14/25 09:01 PHQ-9: PHQ-9 Score PHQ-9: Total score 3 01/14/25 09:26 Depression Screening Interpretation: Negative Thrive Assessment: Date of Thrive Assessment Date Thrive assessed 01/14/25 01/14/25 09:03 Currently or been in a relationship where the following occur: I choose not to answer Const General: no acute distress HENMT Head: Yes normal to inspection Face and sinus: Yes normal facial exam Eyes General: appearance normal, both eyes and all related structures Neck Neck: Yes no lymphadenopathy and Yes supple Resp Effort & Inspection: normal respiratory effort Auscultation: clear to auscultation bilaterally Cardio Rhythm: regular rhythm Heart sounds: S1 normal heart sound present and S2 normal heart sound present GI Inspection: Yes normal to inspection Palpation (GI): Soft to palpation Neuro Cranial nerves: Yes CN's II-XII intact bilaterally Gait exam (Neuro): Normal gait present Motor exam (neuro): 5/5 motor strength present throughout Coordination: [id number] test normal and Romberg test negative Extrem General: Yes no clubbing, cyanosis or edema Coding Level of Care Code Est Pt Level 4 (66658) Diagnoses Hyperlipidemia E78.5 Headache R51.9 Additional Codes PHQ-9 - 10126 - PHQ-9 Billing: Yes ([id number]) Assessment & Plan Assessment & Plan (1) Hyperlipidemia: Comment: Diet controlled Code(s): E78.5 - Hyperlipidemia, unspecified Category: Medical Plan: Continue low-cholesterol diet (2) Headache: Comment: negative brain CTA and MR, 12/2024 [facility] Code(s): R51.9 - Headache, unspecified Category: Medical Plan: Patient had negative neuro workup. He was advised to stay well hydrated avoid excessive amount of alcohol
[2025-01-14 08:55] VITALS: BP 110/90; PULSE 77; RESP 18; TEMP 36.7; O2SAT 99; BMI 27.9
[2025-01-14 09:43] VITALS: BP 110/78
== END 2025-01-14 10:56 | disposition home or self-care (01) ==
LOC: HO.HMCC 08:52
PROVIDERS: PCP Internal Medicine; Visit Provider Internal Medicine
DX: E78.5 Hyperlipidemia, unspecified (principal); R51.9 Headache, unspecified

== ENCOUNTER → 2025-01-14 08:51 | Outpatient (BNVA) | payer BC, SELFPAY | PROVIDERS: PCP Internal Medicine; Visit Provider Internal Medicine | DX: E78.5 Hyperlipidemia, unspecified (principal); R51.9 Headache, unspecified | CPT/HCPCS: 96127 ==